=== PATIENT | female | born 1930 | race Caucasian/White ===

== ENCOUNTER 2018-03-20 09:35 | Inpatient (IN) ==
--- NOTE | 2018-03-20 09:49 | Emergency Department Note ---
Disposition Clinical Impression: Pleural effusion, Weakness Fall Qualifiers: Encounter type: initial encounter Qualified Code(s): W19.XXXA - Unspecified fall, initial encounter Syncope Qualifiers: Syncope type: unspecified Qualified Code(s): R55 - Syncope and collapse Leukocytosis Qualifiers: Leukocytosis type: bandemia Qualified Code(s): D72.825 - Bandemia Disposition: Admitted As Inpatient Condition: Good Referrals: Joseph Rowan MD [Primary Care Provider] - Forms: ED Satisfaction Letter General Adult HPI - General Chief complaint: ED Fall Stated complaint: fall Time Seen by Provider: 03/20/18 09:39 Source: patient, family, EMS Mode of arrival: EMS Limitations: no limitations Nursing Notes Reviewed: Yes Vital Signs Reviewed: Yes - History of Present Illness HPI Narrative: Patient presents today for evaluation after fall. Patient lives with and daughter. The patient went to the other room and fell. It was unwitnessed. She was down for approximately 20-30 minutes. Patient does not remember anything that happened. They are unsure about loss of consciousness. There is no specific mechanical fall. The patient is otherwise pleasant and is very talkative. She does have some dementia which makes history Limited. When she was initially kept by EMS she had a pulse ox of 91%. She is placed on 2 L of oxygen it has gone up to the high 90s. No specific tachycardia. No specific infectious symptoms. She does state that she has felt weak over the last 2 days is unable to further quantify. Weakness workup as well as evaluation for syncope in regards to trauma have been initiated. - Related Data Home Medications Medication Instructions Recorded Confirmed Aspirin [Lo-Dose Aspirin EC] 81 mg PO DAILY 03/20/18 03/20/18 Cyanocobalamin (B-12) [Vitamin B12] 1,000 mcg PO DAILY 03/20/18 03/20/18 Ferrous Sulfate 325 mg PO DAILY 03/20/18 03/20/18 Furosemide [Lasix] 20 mg PO DAILY 03/20/18 03/20/18 Memantine HCl [Namenda Xr] 21 mg PO DAILY 03/20/18 03/20/18 Metoprolol Succinate [Toprol Xl] 25 mg PO DAILY 03/20/18 03/20/18 Mv,Fe,Min/Lutein [A Thru Z Select 1 tab PO DAILY 03/20/18 03/20/18 Women's Tablet] [place]-3/Dha/Epa/Fish Oil [Fish Oil 1 cap PO DAILY 03/20/18 03/20/18 1,000 mg Softgel] Omeprazole [PriLOSEC] 40 mg PO DAILY 03/20/18 03/20/18 Sertraline [Zoloft] 50 mg PO DAILY 03/20/18 03/20/18 Allergies Allergy/AdvReac Type Severity Reaction Status Date / Time Sulfa (Sulfonamide Allergy Nausea Verified 03/19/17 10:11 Antibiotics) Review of Systems: As Per HPI Constitutional: Denies: fever, chills Cardiovascular: Reports: syncope. Denies: chest pain, dyspnea on exertion Respiratory: Denies: cough Gastrointestinal: Denies: abdominal pain, nausea Integumentary: Reports: other (Hematoma to left head). Denies: rash, abrasion, lesions Neurological: Denies: headache Past Medical History - Social History Smoking Status: Never smoker Smokeless Tobacco Status: No Alcohol use: Reports: none Physical Exam General: Well appearing, nontoxic, no acute distress, talkative Head: Hematoma to the left for head no sniffing ecchymosis Eyes: PERRL, EOMI ENT: Airway patent, no stridor Neck: supple, no meningismus Chest: Lungs clear to auscultation bilateral Cardiac: Regular rate and rhythm Abdomen: soft, nontender, nondistended; no guarding, rebound, or tenderness to percussion Musculoskeletal: No musculoskeletal pain. No tenderness to palpation throughout. No tenderness throughout the cervical thoracic or lumbar spine. There is no abrasions in the skin. She does have mild hematoma to the left forehead. Skin: No rash, normal skin tone Neuro: Awake and alert but not oriented. Course - Reevaluation(s) Reevaluation #1: Patient has concern for effusion on the right. No recent chest x-rays for comparison. She also has a elevated white count of 13. This was elevated last month when she had some lab work performed. The patient does have hypoxia requiring 2 L of oxygen to keep her pulse ox in the upper 90s while resting in bed. Patient will be treated with antibiotics for concern for infection and case will be discussed the hospitalist for further admission and workup. - Consultations Consultation #1: Discussed with hospitalist. Patient accepted for admission. Vital Signs Temperature 98.1 F 03/20/18 09:39 Pulse Rate 80 03/20/18 09:39 Respiratory Rate 12 03/20/18 09:39 Blood Pressure 135/60 03/20/18 09:39 O2 Sat by Pulse Oximetry 98 03/20/18 09:39 Temperature 98.1 F 03/20/18 09:52 Pulse Rate 83 03/20/18 12:31 Respiratory Rate 14 03/20/18 12:31 Blood Pressure 121/58 03/20/18 12:31 O2 Sat by Pulse Oximetry 97 03/20/18 11:02 Oxygen Delivery Oxygen Delivery Room Air Medical Decision Making - Medical Records Medical records reviewed: Yes I reviewed the patient's medical records. - Lab Data Lab results reviewed: Yes I reviewed the patient's lab results. Result diagrams: 03/20/18 10:00 03/20/18 10:00 Lab Results 03/20/18 03/20/18 03/20/18 Range/Units 10:00 10:00 10:00 WBC 13.0 H (4.3-11.1) K/mcL RBC 3.70 L (3.82-4.97) M/mcL Hgb 9.8 L (11.5-15.4) g/dL Hct 31.0 L (35.3-44.9) % MCV 83.8 (83.0-100.0) fL MCH 26.5 L (28.0-33.3) pg MCHC 31.6 (31.6-35.5) g/dL RDW 13.9 (11.5-14.5) % Plt Count 447 H (140-400) K/mcL MPV 9.6 (9.4-12.4) fL Immature Gran % 0.6 (0-4) % Seg Neutrophils % 82.9 % Lymphocytes % 8.5 % Monocytes % 7.4 % Eosinophils % 0.3 % Basophils % 0.3 % Neutrophils # 10.8 H (1.6-8.9) K/mcL Lymphocytes # 1.1 (0.6-4.6) K/mcL Monocytes # 1.0 (0.0-1.3) K/mcL Eosinophils # 0.0 (0.0-0.6) K/mcL Basophils # 0.0 (0.0-0.2) K/mcL PT 12.6 H (9.4-12.1) Seconds INR 1.1 Sodium 137 (136-145) mEq/L Potassium 3.2 L (3.5-5.1) mEq/L Chloride 95 L (98-107) mEq/L Carbon Dioxide 33 H (23-29) mEq/L BUN 21 (8-23) mg/dL Creatinine 0.97 (0.60-1.20) mg/dL Est GFR ( Amer) > 60 (> 60) Est GFR (Non-Af Amer) 54 L (> 60) BUN/Creatinine Ratio 22 (6-26) Glucose 94 (70-105) mg/dL Calculated Osmolality 287 (280-300) Calcium 8.8 (8.6-10.3) mg/dL Troponin I < 0.03 (< 0.04) ng/mL Urine Color (Yellow) Urine Clarity (Clear) Urine pH (5.0-8.0) pH Units Ur Specific [place] (1.010-1.025) Urine Protein (Neg-Trace) mg/dL Urine Glucose (UA) (Normal) mg/dL Urine Ketones (Negative) mg/dL Urine Blood (Negative) Urine Nitrite (Negative) Urine Bilirubin (Negative) Urine Urobilinogen (Normal) mg/dL Ur Leukocyte Esterase (Negative) Ur Culture Indicated? (NO) 03/20/18 Range/Units 10:35 WBC (4.3-11.1) K/mcL RBC (3.82-4.97) M/mcL Hgb (11.5-15.4) g/dL Hct (35.3-44.9) % MCV (83.0-100.0) fL MCH (28.0-33.3) pg MCHC (31.6-35.5) g/dL RDW (11.5-14.5) % Plt Count (140-400) K/mcL MPV (9.4-12.4) fL Immature Gran % (0-4) % Seg Neutrophils % % Lymphocytes % % Monocytes % % Eosinophils % % Basophils % % Neutrophils # (1.6-8.9) K/mcL Lymphocytes # (0.6-4.6) K/mcL Monocytes # (0.0-1.3) K/mcL Eosinophils # (0.0-0.6) K/mcL Basophils # (0.0-0.2) K/mcL PT (9.4-12.1) Seconds INR Sodium (136-145) mEq/L Potassium (3.5-5.1) mEq/L Chloride (98-107) mEq/L Carbon Dioxide (23-29) mEq/L BUN (8-23) mg/dL Creatinine (0.60-1.20) mg/dL Est GFR ( Amer) (> 60) Est GFR (Non-Af Amer) (> 60) BUN/Creatinine Ratio (6-26) Glucose (70-105) mg/dL Calculated Osmolality (280-300) Calcium (8.6-10.3) mg/dL Troponin I (< 0.04) ng/mL Urine Color Yellow (Yellow) Urine Clarity Clear (Clear) Urine pH 6.0 (5.0-8.0) pH Units Ur Specific [place] 1.019 (1.010-1.025) Urine Protein Negative (Neg-Trace) mg/dL Urine Glucose (UA) Normal (Normal) mg/dL Urine Ketones 15 H (Negative) mg/dL Urine Blood Negative (Negative) Urine Nitrite Negative (Negative) Urine Bilirubin Negative (Negative) Urine Urobilinogen Normal (Normal) mg/dL Ur Leukocyte Esterase Negative (Negative) Ur Culture Indicated? NO (NO) - Radiology Data Radiology results reviewed: Yes I reviewed the patient's radiology results. - EKG Data EKG #1 EKG attestation: Yes I reviewed and interpreted this EKG. EKG results narrative: EKG shows sinus rhythm with ventricular rate of 82. AL 150. QRS 88. QTC 455. Patient has no significant ST elevations or depressions. Patient has inverted T waves throughout the anterior leads as well as flattening in leads 3 and aVF. Patient does not have any previous old EKG for comparison.
[2018-03-20 10:12] LABS: Basophils % 0.3 %; Eosinophils % 0.3 %; Hemoglobin 9.8 g/dL (11.5-15.4); Immature Granulocytes % 0.6 % (0-4); Lymphocytes # 1.1 K/mcL (0.6-4.6); Lymphocytes % 8.5 %; Mean Corpuscular HGB Conc 31.6 g/dL (31.6-35.5); Mean Corpuscular Hemoglobin 26.5 pg (28.0-33.3); Mean Corpuscular Volume 83.8 fL (83.0-100.0); Mean Platelet Volume 9.6 fL (9.4-12.4); Monocytes % 7.4 %; Neutrophils # 10.8 K/mcL (1.6-8.9); Platelet Count 447 K/mcL (140-400); Red Cell Distribution Width 13.9 % (11.5-14.5); Segmented Neutrophils % 82.9 %
[2018-03-20 10:19] LABS: INR 1.1; Prothrombin Time 12.6 Seconds (9.4-12.1)
[2018-03-20 10:34] LABS: BUN/Creatinine Ratio 22 (6-26); Blood Urea Nitrogen 21 mg/dL (8-23); Calcium 8.8 mg/dL (8.6-10.3); Carbon Dioxide 33 mEq/L (23-29); Chloride 95 mEq/L (98-107); Glucose 94 mg/dL (70-105); Osmolality,Calculated 287 (280-300); Potassium 3.2 mEq/L (3.5-5.1); Sodium 137 mEq/L (136-145); eGFR For African Americans > 60 (> 60); eGFR For Non-African Americans 54 (> 60)
[2018-03-20 10:35] LABS: Troponin I < 0.03 ng/mL (< 0.04)
[2018-03-20 10:49] LABS: Bilirubin,Urine Negative (Negative); Blood,Urine Negative (Negative); Clarity,Urine Clear (Clear); Color,Urine Yellow (Yellow); Glucose,Urine (UA) Normal (Normal); Ketones,Urine 15 mg/dL (Negative); Leukocyte Esterase,Urine Negative (Negative); Nitrite,Urine Negative (Negative); Protein,Urine Negative (Neg-Trace); Specific Gravity,Urine 1.019 (1.010-1.025); Urobilinogen,Urine Normal (Normal)
[2018-03-20] MEDS ORDERED: Piperacillin/Tazobactam 3.375 GM in 0.9 % Sodium Chloride Mini Bag 100 ML IVPB ONE (11:44)
[2018-03-20] MEDS ORDERED: Naloxone 0.4 MG/ML INJ IVP PRN (14:38)
[2018-03-20] MEDS ORDERED: 0.9 % Sodium Chloride 1,000 ML IVC SCH (14:45)
--- NOTE | 2018-03-20 16:06 | Internal Med History&Physical ---
Date of Encounter: 03/20/18 Time of Encounter: 14:00 Internal Medicine - H&P: HPI Chief complaint: Had a syncopal episode at home today History of present illness: Ms. Davenport is a 87 year old female with a pmh of hypertension, dementia presenting with complaints of passing out today in the bathroom. Patient herself does not recall the episode, history was provided by her daughter. Daughter states that at about 8am they heard a crash in the bathroom and found patient on the bathroom floor. She was immediately awake so it is unclear if she passed out or had a mechanical fall. Daughter say patient has had some increasing shortness of breath and been light headed for a while and has been progressively getting weaker. she denies any other acute symptoms such as fever , chills, diarrhea or abdominal pain. In ER, CXR showed a right pleural effusion and she had a WBC of 13. Past Med Surg Social Fam HX - Past Medical History Medical history: dementia, hyperlipidemia, hypertension Psychiatric history: no psych history - Social History Smoking Status: Never smoker Smokeless Tobacco Status: No Alcohol use: none Drug use: none - Family History Mother Living Status: Father Living Status: Hx Family Cancer: Yes (lung) Internal Medicine - H&P: Meds Aspirin [Lo-Dose Aspirin EC] 81 mg PO DAILY 03/20/18 [History] Cyanocobalamin (B-12) [Vitamin B12] 1,000 mcg PO DAILY 03/20/18 [History] Ferrous Sulfate 325 mg PO DAILY 03/20/18 [History] Furosemide [Lasix] 20 mg PO DAILY 03/20/18 [History] Memantine HCl [Namenda Xr] 21 mg PO DAILY 03/20/18 [History] Metoprolol Succinate [Toprol Xl] 25 mg PO DAILY 03/20/18 [History] Mv,Fe,Min/Lutein [A Thru Z Select Women's Tablet] 1 tab PO DAILY 03/20/18 [ History] [place]-3/Dha/Epa/Fish Oil [Fish Oil 1,000 mg Softgel] 1 cap PO DAILY 03/20/18 [ History] Omeprazole [PriLOSEC] 40 mg PO DAILY 03/20/18 [History] Sertraline [Zoloft] 50 mg PO DAILY 03/20/18 [History] 3 Allergy/AdvReac Type Severity Reaction Status Date / Time Sulfa (Sulfonamide Allergy Nausea Verified 03/19/17 10:11 Antibiotics) All Systems PM: A 10-system review of systems was performed and is negative for pertinent findings except as documented above in the HPI. - Constitutional Constitutional: fatigue, falls, no chills, no fever(s), no night sweats - EENT Eyes: no change in vision, no discharge, no pain, no photophobia Ears: no ear discharge, no ear pain, no tinnitus Nose, mouth and throat: no dysphagia, no nasal discharge, no neck pain, no sore throat - Cardiovascular Cardiovascular ROS IM: dyspnea on exertion, no chest pain, no diaphoresis, no dyspnea, no lightheadedness, no palpitations, no syncope - Respiratory Respiratory: no cough, no dyspnea, no wheezing, no excessive phlegm production - Gastrointestinal Gastrointestinal: no abdominal pain, no diarrhea, no hematemesis, no hematochezia, no melena, no nausea, no vomiting - Genitourinary Genitourinary: no change in urinary stream, no dysuria, no flank pain, no hematuria - Musculoskeletal Musculoskeletal ROS IM: no numbness, no tingling - Integumentary Integumentary IM: no rash, no unusual bruising - Neurological Neurological ROS: no confusion, no convulsions, no focal weakness, no numbness, no tingling, no tremor(s) - Hematologic/Lymphatic Hematologic/Lymphatic: no easy bruising - Constitutional Vitals: Temp Pulse Resp BP Pulse Ox 98.3 F 89 14 135/73 97 03/20/18 15:29 03/20/18 15:29 03/20/18 15:29 03/20/18 15:29 03/20/18 15:29 Exam: cachectic elderly female - Head Head exam: Present: atraumatic, normocephalic - Eye Eye exam: Present: PERRL, conjuntiva pink, sclera anicteric Pupils: Present: PERRL - Neck Neck exam general surgery: Present: supple, trachea midline. Absent: lymphadenopathy - Respiratory Respiratory exam: Present: CTAB. Absent: accessory muscle use, rales, rhonchi, wheezes - Cardiovascular Cardiovascular exam: Present: RRR, +S1, +S2. Absent: diastolic murmur, gallop, rubs, systolic murmur - GI/Abdominal GI/Abdominal exam: Present: normal bowel sounds, soft, no peritoneal signs. Absent: distended, tenderness - Extremities Exam Extremities exam: Present: warm, radial pulses palpable and symmetrical. Absent : calf tenderness, cyanotic, pedal edema - Neurological Exam Neurological exam: Present: CN II-XII intact, oriented X3, no focal deficits. Absent: pronater drift, facial droop, speech deficit - Skin Skin exam: Present: dry, intact Internal Med - H&P Results - Labs CBC & Chem 7: 03/20/18 10:00 03/20/18 10:00 - Assessment and plan (1) Community acquired bacterial pneumonia Current Visit: Yes Status: Acute Assessment and plan: Pt has leukocytosis with new pleural effusion, query community acquired pneumonia. Start on zosyn. F/U blood cultures and urine strep and legionella antigen (2) Pleural effusion Current Visit: Yes Status: Acute Assessment and plan: Pleuaral effusion r/o CHF. Continue antibiotics and obtain 2d echo to evaluate cardiac function (3) Fall Current Visit: Yes Status: Acute Assessment and plan: Possibly secondary to dehydration vs infection. Hold lasix. Will encourage oral hydration. Obtain echo due to pleural effusion. Will hold off giving IV fluids until echo is completed Qualifiers: Encounter type: initial encounter Qualified Code(s): W19.XXXA - Unspecified fall, initial encounter (4) Hypertension Current Visit: Yes Status: Acute Assessment and plan: Continue beta zelalem. Hold lasix for peripheral edema Qualifiers: Qualified Code(s): I10 - Essential (primary) hypertension (5) Syncope Current Visit: Yes Status: Acute Assessment and plan: See plan for fall Qualifiers: Syncope type: unspecified Qualified Code(s): R55 - Syncope and collapse (6) DVT prophylaxis Current Visit: Yes Status: Acute Assessment and plan: Heparin sc - Time Spent With Patient Total time spent is greater than 50% in coordination of care (as documented) at patient's floor/unit and/or counseling patient:
[2018-03-20] MEDS: Potassium Chloride Elixir 20 MEQ/15 ML UDC PO SCH ×2 (16:32→20:16)
[2018-03-20] MEDS: Piperacillin/Tazobactam 3.375 GM in 0.9 % Sodium Chloride Mini Bag 100 ML IVPB SCH (20:09)
[2018-03-21] MEDS: Piperacillin/Tazobactam 3.375 GM in 0.9 % Sodium Chloride Mini Bag 100 ML IVPB SCH ×3 (05:22→21:06)
[2018-03-21 06:18] LABS: Basophils # 0.1 K/mcL (0.0-0.2); Basophils % 0.4 %; Eosinophils # 0.1 K/mcL (0.0-0.6); Eosinophils % 0.7 %; Hematocrit 30.2 % (35.3-44.9); Hemoglobin 9.3 g/dL (11.5-15.4); Immature Granulocytes % 0.3 % (0-4); Lymphocytes # 1.3 K/mcL (0.6-4.6); Mean Corpuscular HGB Conc 30.8 g/dL (31.6-35.5); Mean Corpuscular Hemoglobin 25.8 pg (28.0-33.3); Mean Corpuscular Volume 83.7 fL (83.0-100.0); Monocytes % 8.3 %; Neutrophils # 9.5 K/mcL (1.6-8.9); Platelet Count 469 K/mcL (140-400); Red Blood Count 3.61 M/mcL (3.82-4.97); Red Cell Distribution Width 14.1 % (11.5-14.5); Segmented Neutrophils % 79.3 %
[2018-03-21 06:45] LABS: BUN/Creatinine Ratio 16 (6-26); Blood Urea Nitrogen 16 mg/dL (8-23); Calcium 8.7 mg/dL (8.6-10.3); Carbon Dioxide 31 mEq/L (23-29); Chloride 100 mEq/L (98-107); Glucose 105 mg/dL (70-105); Magnesium 2.1 mg/dL (1.6-2.6); Osmolality,Calculated 288 (280-300); Phosphorous 2.7 mg/dL (2.7-4.5); Potassium 3.8 mEq/L (3.5-5.1); Sodium 138 mEq/L (136-145); eGFR For African Americans > 60 (> 60); eGFR For Non-African Americans 52 (> 60)
[2018-03-21] MEDS: Metoprolol XL (24 HR) Succ 25 MG TAB.ER.24H PO SCH (09:03)
[2018-03-21] MEDS: Aspirin Enteric Coated 81 MG Tablet PO SCH (09:04)
[2018-03-21] MEDS: (Omega-3/Dha/Epa/Fish Oil [Fish Oil 1,000 Mg Softgel]) PO SCH (09:06)
[2018-03-21] MEDS: Multivit/Ca/Min/Fe/FA 1 TAB TABLET PO SCH (09:06)
[2018-03-21] MEDS: Cyanocobalamin (B-12) 1,000 MCG TABLET PO SCH (09:06)
--- NOTE | 2018-03-21 18:56 | Electrocardiograph Report ---
[place] [id number] Test Date: 2018-03-20 Pat Name: Nyla Davenport Department: 102 Room: 3B Gender: F [employer] Administrator: : [id number] Requested By: [id number] Order Number: [id number] Reading MD: Srinath Gifford Measurements Intervals [place] Rate: 82 P: 54 FL: 150 QRS: 14 QRSD: 88 T: 45 QT: 417 QTc: 455 Interpretive Statements SINUS RHYTHM Electronically Signed On 03-21-2018 18:54:47 EDT by Srinath Gifford
--- NOTE | 2018-03-21 19:25 | Internal Med Progress Note ---
Date of Encounter: 03/21/18 Time of Encounter: 12:00 - Assessment and plan (1) Fall Current Visit: Yes Status: Acute Assessment and plan: Possibly secondary to dehydration vs infection. Hold lasix. Obtain echo due to pleural effusion. Echo Impressions: LVEF 65%. Normal LV chamber size, wall thickness and function. Mild left ventricular diastolic dysfunction. Normal right ventricular structure and function. No evidence of pulmonary hypertension. No significant valvular dysfunction. Will give gentle hydration overnight check orthostatic Fall precations PT/OT carotid duplex Qualifiers: Encounter type: initial encounter Qualified Code(s): W19.XXXA - Unspecified fall, initial encounter (2) Syncope Current Visit: Yes Status: Acute Assessment and plan: See plan for fall Qualifiers: Syncope type: unspecified Qualified Code(s): R55 - Syncope and collapse (3) Pleural effusion Current Visit: Yes Status: Acute Assessment and plan: Pleuaral effusion r/o CHF. echo Impressions: LVEF 65%. Normal LV chamber size, wall thickness and function. Mild left ventricular diastolic dysfunction. Normal right ventricular structure and function. No evidence of pulmonary hypertension. No significant valvular dysfunction. (4) Community acquired bacterial pneumonia Current Visit: Yes Status: Acute Assessment and plan: Pt has leukocytosis with new pleural effusion, query community acquired pneumonia. Start on zosyn. F/U blood cultures and urine strep and legionella antigen white count improving will cont to monitor (5) Hypertension Current Visit: Yes Status: Acute Assessment and plan: Continue beta zelalem. Hold lasix for peripheral edema Qualifiers: Hypertension type: unspecified Qualified Code(s): I10 - Essential (primary ) hypertension (6) DVT prophylaxis Current Visit: Yes Status: Acute Assessment and plan: Heparin sc - Time Spent With Patient Total time spent is greater than 50% in coordination of care (as documented) at patient's floor/unit and/or counseling patient: - Subjective Interval history: Patient seen and examined at bedside. She complains of difficulty swallowing, which has been going on for several months We will obtain speech evaluation . - Constitutional Vitals: Temp Pulse Resp BP Pulse Ox 97.5 F L 82 16 127/75 92 03/21/18 19:01 03/21/18 19:01 03/21/18 19:01 03/21/18 19:01 03/21/18 19:01 General appearance: Present: A&O X 2 - Head Head exam: Present: atraumatic, normocephalic - Eye Eye exam: Present: PERRL, conjuntiva pink, sclera anicteric Pupils: Present: PERRL - Neck Neck exam general surgery: Present: supple, trachea midline. Absent: lymphadenopathy - Respiratory Respiratory exam: Present: CTAB. Absent: accessory muscle use, rales, rhonchi, wheezes - Cardiovascular Cardiovascular exam: Present: RRR, +S1, +S2. Absent: diastolic murmur, gallop, rubs, systolic murmur - GI/Abdominal GI/Abdominal exam: Present: normal bowel sounds, soft, no peritoneal signs. Absent: distended, tenderness - Extremities Exam Extremities exam: Present: warm, radial pulses palpable and symmetrical. Absent : calf tenderness, cyanotic, pedal edema - Neurological Exam Neurological exam: Present: CN II-XII intact, oriented X3, no focal deficits. Absent: pronater drift, facial droop, speech deficit - Skin Skin exam: Present: dry, intact Internal Medicine: Result - Labs CBC & Chem 7: 03/21/18 05:29 03/21/18 05:29 Labs: Short CBC 03/21/18 Range/Units 05:29 WBC 12.0 H (4.3-11.1) K/mcL Hgb 9.3 L (11.5-15.4) g/dL Hct 30.2 L (35.3-44.9) % Plt Count 469 H (140-400) K/mcL Neutrophils # 9.5 H (1.6-8.9) K/mcL BMP 03/21/18 05:29 Sodium 138 Potassium 3.8 Chloride 100 Carbon Dioxide 31 H BUN 16 Creatinine 1.00 Glucose 105 Calcium 8.7 - ABG Interpretation ABG results: PT/INR, D-dimer PT 12.6 Seconds (9.4-12.1) H 03/20/18 10:00 - Impressions Impressions Echocardiogram 03/21/18 08:00 Impressions: LVEF 65%. Normal LV chamber size, wall thickness and function. Mild left ventricular diastolic dysfunction. Normal right ventricular structure and function. No evidence of pulmonary hypertension. No significant valvular dysfunction. Left Ventricular Wall Motion: Rest Echo Findings All wall segments showed normal motion. Findings: Study Quality * Technically adequate exam. ECG Findings * Normal sinus rhythm. Left Ventricle * LVEF 65%. * Normal LV chamber size, wall thickness and function. * Mild left ventricular diastolic dysfunction. Right Ventricle * Normal right ventricular structure and function. Left Atrium * Mildly dilated left atrium. Right Atrium * Normal right atrial size. Aortic Valve * Aortic valve not well visualized. * No aortic regurgitation. * No aortic stenosis. Mitral Valve * Normal mitral valve structure and function. * No mitral regurgitation. * No mitral stenosis. Tricuspid Valve * Normal tricuspid valve structure and function. * Trace tricuspid regurgitation. * No evidence of pulmonary hypertension. Pulmonic Valve * Normal pulmonic valve structure and function. * Trace pulmonic regurgitation. Aorta * Normally sized aortic root. Pericardium * Trivial pericardial effusion. IVC * Normal IVC dimensions and inspiratory collapse. Pulmonary Artery * Normal visualized portions of the main pulmonary artery. Consult Discharge Plan - Plan Referrals: Joseph Rowan MD [Primary Care Provider] -
[2018-03-21] MEDS ORDERED: 0.9 % Sodium Chloride 1,000 ML IVC SCH (19:30)
[2018-03-22] MEDS: Piperacillin/Tazobactam 3.375 GM in 0.9 % Sodium Chloride Mini Bag 100 ML IVPB SCH ×2 (04:02→12:48)
[2018-03-22 04:50] LABS: Basophils % 0.4 %; Eosinophils # 0.1 K/mcL (0.0-0.6); Eosinophils % 1.1 %; Hematocrit 32.2 % (35.3-44.9); Hemoglobin 9.7 g/dL (11.5-15.4); Immature Granulocytes % 0.5 % (0-4); Lymphocytes # 2.1 K/mcL (0.6-4.6); Lymphocytes % 18.8 %; Mean Corpuscular HGB Conc 30.1 g/dL (31.6-35.5); Mean Corpuscular Hemoglobin 25.7 pg (28.0-33.3); Mean Corpuscular Volume 85.2 fL (83.0-100.0); Monocytes # 0.9 K/mcL (0.0-1.3); Monocytes % 8.4 %; Neutrophils # 7.8 K/mcL (1.6-8.9); Platelet Count 515 K/mcL (140-400); Red Blood Count 3.78 M/mcL (3.82-4.97); Red Cell Distribution Width 14.2 % (11.5-14.5); Segmented Neutrophils % 70.8 %
[2018-03-22 05:16] LABS: BUN/Creatinine Ratio 16 (6-26); Blood Urea Nitrogen 16 mg/dL (8-23); Calcium 8.8 mg/dL (8.6-10.3); Carbon Dioxide 32 mEq/L (23-29); Chloride 100 mEq/L (98-107); Glucose 86 mg/dL (70-105); Osmolality,Calculated 288 (280-300); Potassium 3.6 mEq/L (3.5-5.1); Sodium 139 mEq/L (136-145); eGFR For African Americans > 60 (> 60); eGFR For Non-African Americans 51 (> 60)
[2018-03-22] MEDS: Multivit/Ca/Min/Fe/FA 1 TAB TABLET PO SCH (08:29)
[2018-03-22] MEDS: Cyanocobalamin (B-12) 1,000 MCG TABLET PO SCH (08:29)
[2018-03-22] MEDS: Metoprolol XL (24 HR) Succ 25 MG TAB.ER.24H PO SCH (08:29)
[2018-03-22] MEDS: Aspirin Enteric Coated 81 MG Tablet PO SCH (08:29)
[2018-03-22] MEDS: (Omega-3/Dha/Epa/Fish Oil [Fish Oil 1,000 Mg Softgel]) PO SCH (08:29)
[2018-03-22 15:51] VITALS: BP 121/55
[2018-03-22] MEDS ORDERED: levoFLOXacin 750 MG TABLET PO STA (17:42)
--- NOTE | 2018-03-22 17:45 | Discharge Summary ---
- NOTES TO OUTPATIENT PROVIDER Notes to Outpatient Provider: Follow up with PCP in 2-3 days after discharge. Recheck CBC at that time. Orders not resulted at time of discharge: Pending orders 03/20/18 16:10 Culture,Blood [BC] Routine Date of Encounter: 03/22/18 Time of Encounter: 17:43 - Discharge Diagnosis (1) Fall Priority: Primary Status: Acute Qualifiers: Encounter type: subsequent encounter Qualified Code(s): W19.XXXD - Unspecified fall, subsequent encounter (2) Syncope Priority: Secondary Status: Acute Qualifiers: Syncope type: unspecified Qualified Code(s): R55 - Syncope and collapse (3) Pleural effusion Priority: Secondary Status: Acute (4) Community acquired bacterial pneumonia Priority: Secondary Status: Suspected (5) Hypertension Priority: Secondary Status: Chronic Qualifiers: Hypertension type: essential hypertension Qualified Code(s): I10 - Essential (primary) hypertension (6) DVT prophylaxis Priority: Secondary Status: Acute Hospital course: Ms. Davenport is a 87 year old female admitted for syncopal episode and fall. Patient was admitted to general medical floor with telemetry. CXR showed small pleural effusion and there was concern for possible community acquired pneumonia , so she was started on IV zosyn. Leukocytosis improved with antibiotic treatment. PT/OT were consulted; they recommended home health with home PT/OT. ECHO showed LVEF 65%, normal LV size and function, mild LV diastolic dysfunction, normal RV structure and function, no pulmonary hypertension, and no significant valvular dysfunction. Carotid doppler preliminary read showed non-stenotic plaquie. Patient is doing well today with no complaints. She was evaluated by speech therapy today with no swallowing deficits noted. She will be discharged home with follow up with PCP in 2-3 days after discharge. She will complete 4 more days of PO levaquin 750 mg QD. PCP can recheck CBC and follow up on final carotid doppler results from hospital during follow up appointment. Patient has met maximum benefit of this hospitalization and will be discharged home with home health, home PT, and home OT in stable condition. Discharge discussed with: patient, family, nurse - Time Spent with Patient Total time spent providing and/or coordinating discharge services: Greater than 30 minutes - Discharge Medications Prescriptions: Levofloxacin [Levaquin] 750 mg PO DAILY 4 Days #4 tablet Home Medications: Aspirin [Lo-Dose Aspirin EC] 81 mg PO DAILY 03/20/18 [History] Cyanocobalamin (B-12) [Vitamin B12] 1,000 mcg PO DAILY 03/20/18 [History] Ferrous Sulfate 325 mg PO DAILY 03/20/18 [History] Furosemide [Lasix] 20 mg PO DAILY 03/20/18 [History] Memantine HCl [Namenda Xr] 21 mg PO DAILY 03/20/18 [History] Metoprolol Succinate [Toprol Xl] 25 mg PO DAILY 03/20/18 [History] Mv,Fe,Min/Lutein [A Thru Z [employer]'s Tablet] 1 tab PO DAILY 03/20/18 [ History] [place]-3/Dha/Epa/Fish Oil [Fish Oil 1,000 mg Softgel] 1 cap PO DAILY 03/20/18 [ History] Omeprazole [PriLOSEC] 40 mg PO DAILY 03/20/18 [History] Sertraline [Zoloft] 50 mg PO DAILY 03/20/18 [History] Levofloxacin [Levaquin] 750 mg PO DAILY 4 Days #4 tablet 03/22/18 [Rx] Allergies/Adverse Reactions: 3 Allergy/AdvReac Type Severity Reaction Status Date / Time Sulfa (Sulfonamide Allergy Nausea Verified 03/19/17 10:11 Antibiotics) Date of admission: 03/20/18 14:38 Primary care physician: Joseph Rowan MD Consults: 03/20/18 15:35 Consult to Physical Therapy [CONS] Routine Comment: Evaluate, develop and implement POC Reason for Consult: fall Does patient have active BEDREST order?: No Is patient medically & hemodynamically stable?: No Patient assessed for mobility or mobilized this visit?: No 03/20/18 16:36 consult to glove presser [Consult to Nutrition] [CONS] Routine Comment: Consulting Provider: NUTRITION Reason for Dietary Consult: Other 03/21/18 09:36 Consult to Nurse Navigator [CONS] Routine Comment: PNEUMONIA Discharging clinician: Aniket Whittington Anticipated date of discharge: 03/22/18 - Constitutional Vitals: Temp Pulse Resp BP Pulse Ox 97.8 F 83 18 121/55 95 03/22/18 15:47 03/22/18 15:47 03/22/18 15:47 03/22/18 15:47 03/22/18 15:47 General appearance: Present: cooperative, A&O X 3, pleasant, no acute distress, answers questions appropriately - Respiratory Respiratory exam: Present: CTAB. Absent: accessory muscle use, rales, rhonchi, wheezes Additional comments: Normal WOB - Cardiovascular Cardiovascular exam: Present: RRR, +S1, +S2. Absent: diastolic murmur, gallop, rubs, systolic murmur Additional comments: No BLE edema - GI/Abdominal GI/Abdominal exam: Present: normal bowel sounds, soft. Absent: distended, hepatomegaly, mass, splenomegaly, tenderness - Psychiatric Psychiatric exam: Present: normal affect, normal mood. Absent: agitated, anxious, depressed - Skin Skin exam: Present: dry, intact, warm. Absent: cyanosis, rash - Patient Status Disposition: Home Health Service Condition: Good Overall status at discharge: patient is progressing back to baseline - Discharge Instructions Follow Up With: Joseph Rowan MD [Primary Care Provider] - 03/28/18 10:15 am Additional Instructions: Follow up with PCP in 2-3 days after discharge. Recheck CBC at that time. - Diet and Activity Activity: as per physical therapy Diet: low fat, low cholesterol, low salt diet, other (Cardiac Diet) - VTE Documentation of Mechanical Device: Intermittent pneumatic compression device
--- NOTE | 2018-03-22 17:57 | Physician Discharge Referral ---
Home Health/Hosp Referral Info Transfer to: Home Health Provider in Charge Post Discharge: PCP - Diagnosis (1) Fall Priority: Primary Status: Acute (2) Syncope Priority: Secondary Status: Acute (3) Pleural effusion Priority: Secondary Status: Acute (4) Community acquired bacterial pneumonia Priority: Secondary Status: Suspected (5) Hypertension Priority: Secondary Status: Chronic (6) DVT prophylaxis Priority: Secondary Status: Acute - Respiratory Orders Smoking Cessation: Smoking cessation has been advised. For more information, call the [place] Tobacco Quit Line at 5-815-FAJK-NOW. - Diet/Nutrition Diet/Nutrition Orders: No Added Salt (MARGIE), Cardiac - Activity Activity: List: Per physical therapy - Services Needed Following services are medically necessary services: Nursing, Physical Therapy, Occupational Therapy - Transfer Medications Prescriptions: Levofloxacin [Levaquin] 750 mg PO DAILY 4 Days #4 tablet Home Medications: Aspirin [Lo-Dose Aspirin EC] 81 mg PO DAILY 03/20/18 [History] Cyanocobalamin (B-12) [Vitamin B12] 1,000 mcg PO DAILY 03/20/18 [History] Ferrous Sulfate 325 mg PO DAILY 03/20/18 [History] Furosemide [Lasix] 20 mg PO DAILY 03/20/18 [History] Memantine HCl [Namenda Xr] 21 mg PO DAILY 03/20/18 [History] Metoprolol Succinate [Toprol Xl] 25 mg PO DAILY 03/20/18 [History] Mv,Fe,Min/Lutein [A Thru Z [employer]'s Tablet] 1 tab PO DAILY 03/20/18 [ History] [place]-3/Dha/Epa/Fish Oil [Fish Oil 1,000 mg Softgel] 1 cap PO DAILY 03/20/18 [ History] Omeprazole [PriLOSEC] 40 mg PO DAILY 03/20/18 [History] Sertraline [Zoloft] 50 mg PO DAILY 03/20/18 [History] Levofloxacin [Levaquin] 750 mg PO DAILY 4 Days #4 tablet 03/22/18 [Rx] Allergies/Adverse Reactions: 3 Allergy/AdvReac Type Severity Reaction Status Date / Time Sulfa (Sulfonamide Allergy Nausea Verified 03/19/17 10:11 Antibiotics) Certification: Further, I certify that my clinical findings support that this patient is homebound (i.e. absences from home require considerable and taxing effort and are for medical reasons or sabianist services or infrequently or short duration when for other reasons) because: falls, syncope, community acquired pneumonia, and HTN. Homebound Reason: Patient requires assistance of a person or device to safely leave home, Leaving home requires considerable and taxing effort due to condition Attestation: My signature below is to certify that this patient is under my care and that I, or nurse practitioner, or a physician's certified pathology assistant working with me, has a face-to -face encounter with this patient.
== END 2018-03-22 18:45 | disposition home health service (06) | DRG 194 ==
LOC: 3BNU 09:35 → EMEROO 09:35 → 3BNU 13:31
PROVIDERS: ADMIT Student in an Organized Health Care Education/Training Program; ATTEND Student in an Organized Health Care Education/Training Program